=== PATIENT | male | born 1950 | race Caucasian/White ===

== ENCOUNTER 2016-06-30 12:31 | Outpatient (CLI) | payer OTHER | END 2016-06-30 19:06 | disposition home or self-care (01) | LOC: SRD 12:31 | PROVIDERS: ATTEND Family Medicine | DX: M17.12 Unilateral primary osteoarthritis, left knee (principal); M47.896 Other spondylosis, lumbar region | CPT/HCPCS: 72110; 73564 ==

== ENCOUNTER 2017-11-01 15:29 | Emergency (ER) | payer OTHER ==
[~2017-11-01] VITALS: Ht 172.7 cm; Wt 104.3 kg
[2017-11-01 15:30] VITALS: BP_SYST 142
[2017-11-01] MEDS ORDERED: LIDOCAINE 1% 10 MG/ML, 20 ML MDV INJ ONE (15:45)
[2017-11-01] MEDS ORDERED: BACITRACIN 1 GM OINT TP ONE (15:45)
[2017-11-01 17:41] VITALS: BP_SYST 142
== END 2017-11-01 17:40 | disposition home or self-care (01) ==
LOC: SED 15:29
DX: S61.215A Laceration without foreign body of left ring finger without damage to nail, initial encounter (principal); E11.9 Type 2 diabetes mellitus without complications; I10 Essential (primary) hypertension; W26.9XXA Contact with unspecified sharp object(s), initial encounter; Y93.89 Activity, other specified; Y92.009 Unspecified place in unspecified non-institutional (private) residence as the place of occurrence of the external cause; Y99.8 Other external cause status
CPT/HCPCS: 73140-TC; 99284

== ENCOUNTER 2017-12-25 08:30 | Outpatient (CLI) | payer OTHER | END 2017-12-25 15:30 | disposition home or self-care (01) | LOC: SUS 08:30 | PROVIDERS: ATTEND Family Medicine | DX: I77.811 Abdominal aortic ectasia (principal); E80.7 Disorder of bilirubin metabolism, unspecified | CPT/HCPCS: 76700-TC ==

== ENCOUNTER 2020-08-06 09:16 | Emergency (ER) | payer OTHER ==
[~2020-08-06] VITALS: Ht 172.7 cm; Wt 86.2 kg
[2020-08-06 09:16] VITALS: BP_SYST 142
[2020-08-06] MEDS ORDERED: LIDOINT TP (09:41)
[2020-08-06] MEDS ORDERED: ACET-2634 PO (09:41)
[2020-08-06] MEDS ORDERED: ACYC-133 PO (09:41)
[2020-08-06 09:48] VITALS: BP_SYST 142
[2020-08-07] MEDS ORDERED: ACET1TAB23 PO (22:32)
== END 2020-08-06 09:49 | disposition home or self-care (01) ==
LOC: SED 09:16
DX: B02.9 Zoster without complications (principal); I10 Essential (primary) hypertension; E11.9 Type 2 diabetes mellitus without complications; Z79.899 Other long term (current) drug therapy
CPT/HCPCS: 99283

== ENCOUNTER 2020-08-07 19:17 | Emergency (ER) | payer OTHER ==
[~2020-08-07] VITALS: Ht 172.7 cm; Wt 104.3 kg
[~2020-08-07 19:17] MED LIST: ACET-2634 PO; ACYC-133 PO; LIDOINT TP
[2020-08-07 19:25] VITALS: BP_SYST 166
[2020-08-07] MEDS ORDERED: ACET1TAB23 PO (22:32)
[2020-08-07 22:40] VITALS: BP_SYST 161
== END 2020-08-07 22:42 | disposition home or self-care (01) ==
LOC: SED 19:17
DX: R22.0 Localized swelling, mass and lump, head (principal); I10 Essential (primary) hypertension; E11.9 Type 2 diabetes mellitus without complications; Z79.899 Other long term (current) drug therapy
CPT/HCPCS: 99283